=== PATIENT | male | born 1965 | race Two or more races ===

== ENCOUNTER 2024-03-25 16:32 | Emergency (ER) | payer MEDICAID, OTHER | END 2024-03-25 18:23 | disposition left against medical advice (07) | LOC: ER 16:32 | DX: T14.8XXA Other injury of unspecified body region, initial encounter (principal); Z53.21 Procedure and treatment not carried out due to patient leaving prior to being seen by health care provider; X58.XXXA Exposure to other specified factors, initial encounter; Y93.9 Activity, unspecified; Y92.9 Unspecified place or not applicable; Y99.9 Unspecified external cause status ==